=== PATIENT | female | born 1970 | race Caucasian/White ===

== ENCOUNTER 2017-12-14 16:49 | Emergency (ER) | payer MEDICARE, OTHER ==
[~2017-12-14] VITALS: Ht 152.4 cm; Wt 54.4 kg
[~2017-12-14 16:49] MED LIST: AMOX500 PO; AMOX875 PO; CEPH500 PO; CIPHYDOTSU OT; CLIN150 PO; CLIN300 PO; CYCL10 PO; Cyclobenzaprine5 MG PO; DOXY100 PO; DULO60 PO; GENT.3OPSA OU; HYDACE10B; HYDACE10B PO; HYDACE5; HYDACE5 PO; HYDACE7.5 PO; IBUP400; IBUP800; IBUP800 PO; METR70GEL VAG; MOXIOPS RIGHTEYE; NAPR500 PO; Norco 5-325 Ta1 EACH PO; OXYACE5T PO; OXYC15ER PO; PENVK500 PO; PROM25 PO; Percocet 5-3251 EACH PO; RXCLIN PO; RXCYCL10 PO; RXHYDACE PO; RXOXYACE PO; RXPENVK250 PO; SILSUL1TC TOP; TRAM50 PO
[2017-12-14] MEDS ORDERED: Cyclobenzaprine5 MG PO (17:26)
[2017-12-14] MEDS ORDERED: Hydrocodone-Ap1 EA23 PO (17:26)
== END 2017-12-14 17:35 | disposition home or self-care (01) ==
LOC: ER 16:49
DX: M70.811 Other soft tissue disorders related to use, overuse and pressure, right shoulder (principal); H54.40 Blindness, one eye, unspecified eye; F17.210 Nicotine dependence, cigarettes, uncomplicated; Z88.5 Allergy status to narcotic agent; Z88.6 Allergy status to analgesic agent; Z88.2 Allergy status to sulfonamides
CPT/HCPCS: 99283

== ENCOUNTER 2017-12-23 02:01 | Emergency (ER) | payer MEDICARE, OTHER ==
[~2017-12-23] VITALS: Ht 152.4 cm; Wt 54.4 kg
[~2017-12-23 02:01] MED LIST changes: +Hydrocodone-Ap1 EA23 PO
[2017-12-23] MEDS ORDERED: IBUP600 PO (02:45)
== END 2017-12-23 02:56 | disposition home or self-care (01) ==
LOC: ER 02:01
DX: M25.552 Pain in left hip (principal); Q65.89 Other specified congenital deformities of hip; F17.210 Nicotine dependence, cigarettes, uncomplicated; Z88.5 Allergy status to narcotic agent; Z88.6 Allergy status to analgesic agent; Z88.2 Allergy status to sulfonamides; Z79.899 Other long term (current) drug therapy
CPT/HCPCS: 73502; 99283

== ENCOUNTER 2018-01-22 01:57 | Emergency (ER) | payer MEDICARE, OTHER ==
[~2018-01-22] VITALS: Ht 152.4 cm; Wt 59.0 kg
[~2018-01-22 01:57] MED LIST changes: +IBUP600 PO
== END 2018-01-22 03:28 | disposition home or self-care (01) ==
LOC: ER 01:57
DX: S09.90XA Unspecified injury of head, initial encounter (principal); W01.198A Fall on same level from slipping, tripping and stumbling with subsequent striking against other object, initial encounter; Z88.5 Allergy status to narcotic agent; Z88.8 Allergy status to other drugs, medicaments and biological substances; Z88.2 Allergy status to sulfonamides; F17.210 Nicotine dependence, cigarettes, uncomplicated
CPT/HCPCS: 99283

== ENCOUNTER 2018-02-12 19:03 | Emergency (ER) | payer MEDICARE ==
[~2018-02-12] VITALS: Ht 152.4 cm; Wt 54.4 kg
== END 2018-02-12 21:55 | disposition home or self-care (01) ==
LOC: ER 19:03
DX: M25.551 Pain in right hip (principal); Q65.9 Congenital deformity of hip, unspecified; R10.2 Pelvic and perineal pain; Z88.5 Allergy status to narcotic agent; Z88.2 Allergy status to sulfonamides; Z88.8 Allergy status to other drugs, medicaments and biological substances; F17.210 Nicotine dependence, cigarettes, uncomplicated; W18.30XA Fall on same level, unspecified, initial encounter
CPT/HCPCS: 72170; 99283

== ENCOUNTER 2018-07-04 15:06 | Emergency (ER) | payer MEDICARE, OTHER ==
[~2018-07-04] VITALS: Ht 152.4 cm; Wt 54.4 kg
== END 2018-07-04 16:20 | disposition home or self-care (01) ==
LOC: ER 15:06
DX: H54.62 Unqualified visual loss, left eye, normal vision right eye (principal); Z88.5 Allergy status to narcotic agent; Z88.8 Allergy status to other drugs, medicaments and biological substances; Z88.2 Allergy status to sulfonamides
CPT/HCPCS: 99283

== ENCOUNTER 2018-08-03 10:41 | Emergency (ER) | payer MEDICARE, OTHER ==
[~2018-08-03] VITALS: Ht 152.4 cm; Wt 55.3 kg
[2018-08-03] MEDS ORDERED: DOXY100 PO (10:58)
[2018-08-03] MEDS ORDERED: IBUP600 PO (11:00)
[2018-08-03] MEDS ORDERED: Ocuflox5 ML (11:00)
[2018-08-03] MEDS ORDERED: Percocet 5-3251 EACH PO (12:43)
== END 2018-08-03 13:09 | disposition home or self-care (01) ==
LOC: ER 10:41
DX: H16.002 Unspecified corneal ulcer, left eye (principal); H54.40 Blindness, one eye, unspecified eye; F17.210 Nicotine dependence, cigarettes, uncomplicated; Z88.5 Allergy status to narcotic agent; Z88.6 Allergy status to analgesic agent; Z88.2 Allergy status to sulfonamides
CPT/HCPCS: 99282

== ENCOUNTER 2018-11-24 08:21 | Emergency (ER) | payer MEDICARE, OTHER ==
[~2018-11-24] VITALS: Ht 152.4 cm; Wt 54.4 kg
[~2018-11-24 08:21] MED LIST changes: +Ciprodex Otic7.5 ML LEFTEAR; +Ocuflox5 ML
[2018-11-24] MEDS ORDERED: Amoxicillin500 MG PO (11:07)
== END 2018-11-24 11:19 | disposition home or self-care (01) ==
LOC: ER 08:21
DX: H65.92 Unspecified nonsuppurative otitis media, left ear (principal); H60.92 Unspecified otitis externa, left ear; Z88.5 Allergy status to narcotic agent; Z88.8 Allergy status to other drugs, medicaments and biological substances; Z88.2 Allergy status to sulfonamides; Z79.899 Other long term (current) drug therapy; F17.210 Nicotine dependence, cigarettes, uncomplicated
CPT/HCPCS: 70450

== ENCOUNTER 2020-07-02 18:06 | Emergency (ER) | payer MEDICARE, OTHER ==
[~2020-07-02] VITALS: Ht 152.4 cm; Wt 65.8 kg
[~2020-07-02 18:06] MED LIST changes: +Amoxicillin500 MG PO
[2020-07-02] MEDS ORDERED: Cleocin HCl300 MG PO ×2 (20:30→20:54)
== END 2020-07-02 21:02 | disposition home or self-care (01) ==
LOC: ER 18:06
DX: L03.114 Cellulitis of left upper limb (principal); F17.210 Nicotine dependence, cigarettes, uncomplicated
CPT/HCPCS: 99283

== ENCOUNTER 2021-04-03 17:45 | Emergency (ER) | payer MEDICARE, OTHER ==
[~2021-04-03] VITALS: Ht 152.4 cm; Wt 61.2 kg
[~2021-04-03 17:45] MED LIST changes: +Cleocin HCl300 MG PO
== END 2021-04-03 20:12 | disposition home or self-care (01) ==
LOC: ER 17:45
DX: M25.552 Pain in left hip (principal); F17.210 Nicotine dependence, cigarettes, uncomplicated; Z88.5 Allergy status to narcotic agent; Z88.6 Allergy status to analgesic agent; Z88.2 Allergy status to sulfonamides
CPT/HCPCS: 72170; 96372; 99283-25; A9270; J1885

== ENCOUNTER 2021-12-21 13:55 | Emergency (ER) | payer MEDICARE, OTHER ==
[~2021-12-21] VITALS: Ht 157.5 cm; Wt 63.5 kg
[~2021-12-21 13:55] MED LIST changes: +CIPR500 PO; +ONDA4ODT MM
[2021-12-21 14:38] LABS: BASOPHILS ABSOLUTE AUTO 0.09 K/mm3 (0.00-0.23); BASOPHILS PERCENT AUTO 0 % (0-2); EOSINOPHILS ABSOLUTE AUTO 0.24 K/mm3 (0.00-0.68); EOSINOPHILS PERCENT AUTO 1 % (0-6); Hematocrit 53.2 % (33.0-51.0); IMMATURE GRAN ABSOLUTE AUTO 0.07 K/mm3 (0.00-0.10); IMMATURE GRAN PERCENT AUTO 0 % (0-1); LYMPHOCYTES ABSOLUTE AUTO 3.46 K/mm3 (0.84-5.20); LYMPHOCYTES PERCENT AUTO 16 % (21-46); MONOCYTES ABSOLUTE AUTO 0.86 K/mm3 (0.16-1.47); MONOCYTES PERCENT AUTO 4 % (4-13); Mean Corpuscular HGB 28.9 pg (26.0-34.0); Mean Corpuscular Volume 90 fL (80-100); Mean Platelet Volume 10.7 fL (9.1-12.4); NEUTROPHILS ABSOLUTE AUTO 16.49 K/mm3 (1.96-9.15); NEUTROPHILS PERCENT AUTO 78 % (41-73); Platelet Count 512 K/mm3 (150-400); RDW Coefficient Variation 13.2 % (11.7-14.2); RDW Standard Deviation 44.4 fL (35.1-46.3); Red Blood Cell Count 5.89 M/mm3 (3.80-5.20); White Blood Cell Count 21.21 K/mm3 (4.00-11.30)
[2021-12-21 14:49] LABS: Alanine Aminotransfer (ALT/SGP 33 U/L (12-78); Albumin, Blood 3.5 g/dL (3.4-5.0); Albumin/Globulin Ratio 0.7 (0.8-1.8); Alk Phos 94 U/L (50-136); Anion Gap 3 mmol/L (6-16); Aspartate Aminotrans (AST/SGOT 23 U/L (12-37); Bilirubin, Total 0.2 mg/dL (0.1-1.0); Blood Urea Nitrogen 16 mg/dL (8-24); Bun/Creatinine Ratio 27.6 (12.0-20.0); CO2, Blood 24 mmol/L (21-32); Calcium, Blood 9.2 mg/dL (8.5-10.1); Chloride, Blood 109 mmol/L (98-108); Creatinine, Blood 0.58 mg/dL (0.40-1.00); Globulin, Blood 4.8 g/dL (2.2-4.0); Glomerular Filtration Rate >60 (60-); Glucose, Blood 149 mg/dL (70-99); Potassium, Blood 4.1 mmol/L (3.5-5.5); Sodium, Blood 136 mmol/L (136-145); Total Protein, Blood 8.3 g/dL (6.4-8.2)
== END 2021-12-21 14:39 | disposition left against medical advice (07) ==
LOC: ER 13:55
PROVIDERS: Physician Assistant
DX: Z53.21 Procedure and treatment not carried out due to patient leaving prior to being seen by health care provider (principal)
CPT/HCPCS: 36415; 80053; 83690; 85025; J1885

== ENCOUNTER 2023-05-26 20:12 | Inpatient (IN) | payer MEDICARE, OTHER ==
[~2023-05-26] VITALS: Ht 152.4 cm; Wt 61.2 kg
[2023-05-26 20:48] LABS: BASOPHILS ABSOLUTE AUTO 0.07 K/mm3 (0.00-0.23); BASOPHILS PERCENT AUTO 1 % (0-2); EOSINOPHILS ABSOLUTE AUTO 0.08 K/mm3 (0.00-0.68); EOSINOPHILS PERCENT AUTO 1 % (0-6); Hematocrit 37.9 % (33.0-51.0); Hemoglobin 12.9 g/dL (11.5-16.0); IMMATURE GRAN ABSOLUTE AUTO 0.05 K/mm3 (0.00-0.10); IMMATURE GRAN PERCENT AUTO 0 % (0-1); LYMPHOCYTES ABSOLUTE AUTO 2.42 K/mm3 (0.84-5.20); LYMPHOCYTES PERCENT AUTO 18 % (21-46); MONOCYTES ABSOLUTE AUTO 1.28 K/mm3 (0.16-1.47); MONOCYTES PERCENT AUTO 9 % (4-13); Mean Corpuscular Volume 88 fL (80-100); Mean Platelet Volume 10.8 fL (9.1-12.4); NEUTROPHILS ABSOLUTE AUTO 9.87 K/mm3 (1.96-9.15); NEUTROPHILS PERCENT AUTO 72 % (41-73); Platelet Count 260 K/mm3 (150-400); RDW Coefficient Variation 13.2 % (11.7-14.2); RDW Standard Deviation 42.8 fL (35.1-46.3); White Blood Cell Count 13.77 K/mm3 (4.00-11.30)
[2023-05-26 21:05] LABS: Albumin, Blood 3.4 g/dL (3.4-5.0); Albumin/Globulin Ratio 0.7 (0.8-1.8); Bilirubin, Total 0.2 mg/dL (0.1-1.0); Creatinine, Blood 0.43 mg/dL (0.40-1.00); Globulin, Blood 4.7 g/dL (2.2-4.0); Potassium, Blood 3.6 mmol/L (3.5-5.5); Total Protein, Blood 8.1 g/dL (6.4-8.2)
[2023-05-26] MEDS ORDERED: AMOCLA875 PO (23:38)
--- NOTE | 2023-05-26 23:55 | NUR ---
ADMIT PT ADMITTED TO 339. ORIENTED TO ROOM. CALL LIGHT IN REACH. C/O ITCHYNESS TO HER FACE ON THE L SIDE. DR. ESPINAL NOTIFIED AND MYRNA ORDERED. SCDS IN PLACE. K PAD SET UP TO HELP WITH CHRONIC HIP PAIN. PT DENIES OTHER NEEDS AT THIS TIME. EDUCATED ON THE NEED TO CALL BEFORE GETTING UP. PT STATES SHE UNDERSTANDS.
[2023-05-27 01:19] VITALS: BP 114/100
[2023-05-27 05:11] VITALS: BP 114/78
[2023-05-27 05:36] LABS: BASOPHILS ABSOLUTE AUTO 0.09 K/mm3 (0.00-0.23); BASOPHILS PERCENT AUTO 1 % (0-2); EOSINOPHILS ABSOLUTE AUTO 0.34 K/mm3 (0.00-0.68); EOSINOPHILS PERCENT AUTO 3 % (0-6); Hemoglobin 12.5 g/dL (11.5-16.0); IMMATURE GRAN ABSOLUTE AUTO 0.03 K/mm3 (0.00-0.10); IMMATURE GRAN PERCENT AUTO 0 % (0-1); LYMPHOCYTES ABSOLUTE AUTO 3.01 K/mm3 (0.84-5.20); LYMPHOCYTES PERCENT AUTO 29 % (21-46); MONOCYTES ABSOLUTE AUTO 1.26 K/mm3 (0.16-1.47); MONOCYTES PERCENT AUTO 12 % (4-13); Mean Corpuscular HGB 29.6 pg (26.0-34.0); Mean Corpuscular HGB Conc 32.9 g/dL (31.5-36.5); Mean Corpuscular Volume 90 fL (80-100); NEUTROPHILS ABSOLUTE AUTO 5.68 K/mm3 (1.96-9.15); NEUTROPHILS PERCENT AUTO 55 % (41-73); Platelet Count 263 K/mm3 (150-400); RDW Coefficient Variation 13.2 % (11.7-14.2); RDW Standard Deviation 43.7 fL (35.1-46.3); Red Blood Cell Count 4.23 M/mm3 (3.80-5.20); White Blood Cell Count 10.41 K/mm3 (4.00-11.30)
--- NOTE | 2023-05-27 05:39 | NUR ---
SHIFT SUMMARY PT ADMITTED THIS SHIFT. BENADRYL GIVEN ORDERED FOR FACIAL ITCHING. PT SLEEPING SINCE WITH RESPIRATIONS EVEN & UNLABORED. CALL LIGHT IN REACH. HEAT PAD IN REACH. PT TOOK SCDS OFF OVERNIGHT. VS REVIEWED. NO OTHER ACUTE CHANGES IN ASSESSMENT AT THIS TIME.
[2023-05-27 07:30] VITALS: BP 93/63
--- NOTE | 2023-05-27 14:38 | NUR ---
SHIFT SUMMARY PT SLEEPING, RESTING QUIETLY AT START OF SHIFT. WOKE EASILY FOR CARE AT FIRST, BUT LATER DID NOT WANT TO BE BOTHERED. PT EVENTUALLY DID WAKE AND GET UP TO BSC TO VOID WITH SBA. BED LINENS AND GOWN CHANGED WHILE PT UP TO BSC. PT HAS REMAINED AWAKE, EATING LUNCH AND NOW VISITING WITH FAMILY. PT'S SON CALLED EARLY TO CK ON PT. PERMISSION TO UPDATE SON OBTAINED FROM PT BEFORE UPDATE GIVEN. RASH TO L FACE REMAINS RED WITH SOME SWELLING NEAR L EAR ESPECIALLY. DR MENDOZA IN TO SEE PT EARLY WHEN PT MORE SLEEPY, AND TO RETURN LATER THIS AFTERNOON. PT SITTING UP IN BED VISITING WITH FAMILY AT THIS TIME. DENIED FURTHER NEEDS. CALL LT IN REACH.
[2023-05-27 15:29] VITALS: BP 111/74
[2023-05-27 19:48] VITALS: BP 113/75
[2023-05-28 04:21] VITALS: BP 114/73
--- NOTE | 2023-05-28 04:31 | NUR ---
SHIFT SUMMARY ETHAN WAS PLEASANT AND COOPERATIVE WITH CARE, C/O OF PAIN IN FACE/EAR WHICH IS RELIEVED BY NORCO. SHE IS ALERT AND FULLY ORIENTED, SHE STAYED UP ON HER PHONE UNTIL AROUND MIDNIGHT AND STAYED ASLEEP MOST OF THE SHIFT THEREAFTER. SHE IS UNSTEADY ON HER FEET USING THE BSC WHILE DROWSY. SHE IS CURRENTLY RESTING IN BED AT LOWEST POSITION WITH THE CALL LIGHT IN REACH. SHE CALLS APPROPRIATEY FOR NEEDS.
--- NOTE | 2023-05-28 05:32 | NUR ---
THIS [facility] CONSULTANT HAS REVIEWED AND AGREES WITH ALL NOTES AND ASSESSMENTS BY EMELI FENTON.
[2023-05-28 07:29] VITALS: BP 120/83
[2023-05-28] MEDS ORDERED: ACET325 PO (11:58)
[2023-05-28] MEDS ORDERED: AMOCLA875 PO (11:58)
[2023-05-28] MEDS ORDERED: NEOPOLHCSU LEFTEAR (11:59)
[2023-05-28] MEDS ORDERED: Nicoderm Cq1 EAC1 TOP (12:01)
[2023-05-28] MEDS ORDERED: NICO2 PO (12:01)
[2023-05-28] MEDS ORDERED: VISBIOME 112.51 EACH PO (12:01)
[2023-05-28 14:53] VITALS: BP 117/78
--- NOTE | 2023-05-28 15:13 | NUR ---
SHIFT SUMMARY PT AWAKE AT START OF SHIFT TODAY. PLEASANT AND CO-OP WITH CARE. REDNESS AND SWELLING TO L FACE/EAR SLIGHTLY IMPROVED. DR MOONEY AND DR MENDOZA BOTH IN TO SEE PT TODAY. PT WANTING TO GO HOME. D/C ORDERS PLACED. MEDS FAXED TO [facility] PER PT REQUEST AND VERIFIED PRIOR TO D/C. APPOINTMENT MADE FOR THIS Saturday AT 11:00 PER ORDERS. MEDS AND APPOINTMENTS REVIEWED WITH PT; VERBALIZED UNDERSTANDING. PT UP INDEPENDENTLY TO BSC. PT REQUESTING SHOWER PRIOR TO D/C. PT MOSTLY INDEPENDENT WITH ADL'S. IV ABX INFUSING PRIOR TO D/C. PT'S SON JUST ARRIVING TO [employer] PT. DENIED FURTHER NEEDS. ALL BELONGINGS WORN BY PT.
== END 2023-05-28 15:30 | disposition home or self-care (01) | DRG 603 ==
LOC: ER 20:12 → MEDS 20:13
PROVIDERS: Physician Assistant; Student in an Organized Health Care Education/Training Program; ADMIT Hospitalist
DX: L03.211 Cellulitis of face (principal); A46 Erysipelas; H54.61 Unqualified visual loss, right eye, normal vision left eye; E86.0 Dehydration; H60.92 Unspecified otitis externa, left ear; F17.210 Nicotine dependence, cigarettes, uncomplicated; L29.9 Pruritus, unspecified; H26.9 Unspecified cataract; H61.102 Unspecified noninfective disorders of pinna, left ear; F12.90 Cannabis use, unspecified, uncomplicated; Z88.2 Allergy status to sulfonamides; Z79.899 Other long term (current) drug therapy; Z71.6 Tobacco abuse counseling; Z88.8 Allergy status to other drugs, medicaments and biological substances
CPT/HCPCS: 36415; 80053; 83605; 85025; 96365; 96366; 99284-25; A9270; G0378; J0690; J7050

== ENCOUNTER 2023-10-31 17:46 | Emergency (ER) | payer OTHER, MEDICARE ==
[~2023-10-31] VITALS: Ht 152.4 cm; Wt 63.5 kg
[~2023-10-31 17:46] MED LIST changes: +ACET325 PO; +AMOCLA875 PO; +NEOPOLHCSU LEFTEAR; +NICO2 PO; +Nicoderm Cq1 EAC1 TOP; +VISBIOME 112.51 EACH PO
[2023-10-31 18:07] VITALS: BP 135/86
== END 2023-10-31 19:28 | disposition home or self-care (01) ==
LOC: ER 17:46
DX: S50.02XA Contusion of left elbow, initial encounter (principal); S50.12XA Contusion of left forearm, initial encounter; F17.210 Nicotine dependence, cigarettes, uncomplicated; Z99.89 Dependence on other enabling machines and devices; W01.198A Fall on same level from slipping, tripping and stumbling with subsequent striking against other object, initial encounter
CPT/HCPCS: 73080; 99283-25

== ENCOUNTER 2024-06-25 18:13 | Emergency (ER) | payer MEDICARE, OTHER ==
[~2024-06-25] VITALS: Ht 152.4 cm; Wt 61.2 kg
[2024-06-25 18:32] VITALS: BP 140/93
[2024-06-25] MEDS ORDERED: CEPH500 PO (19:07)
[2024-06-25] MEDS ORDERED: Cephalexin Monohydrate 500 MG Cap PO ONE (19:10)
== END 2024-06-25 19:22 | disposition home or self-care (01) ==
LOC: ER 18:13
DX: L03.114 Cellulitis of left upper limb (principal); L02.414 Cutaneous abscess of left upper limb; F17.210 Nicotine dependence, cigarettes, uncomplicated; Z88.5 Allergy status to narcotic agent; Z88.6 Allergy status to analgesic agent; Z88.2 Allergy status to sulfonamides
CPT/HCPCS: 99282; A9270

== ENCOUNTER 2024-07-15 19:31 | Emergency (ER) | payer MEDICARE, OTHER ==
[~2024-07-15] VITALS: Ht 152.4 cm; Wt 63.2 kg
[2024-07-15 19:44] VITALS: BP 142/106
[2024-07-15 20:22] LABS: EOSINOPHILS ABSOLUTE AUTO 0.18 K/mm3 (0.00-0.68); LYMPHOCYTES PERCENT AUTO 23 % (21-46); RDW Coefficient Variation 13.4 % (11.7-14.2)
[2024-07-15 20:32] LABS: BASOPHILS ABSOLUTE AUTO 0.07 K/mm3 (0.00-0.23); BASOPHILS PERCENT AUTO 1 % (0-2); EOSINOPHILS PERCENT AUTO 2 % (0-6); Hematocrit 41.1 % (33.0-51.0); Hemoglobin 13.9 g/dL (11.5-16.0); IMMATURE GRAN ABSOLUTE AUTO 0.02 K/mm3 (0.00-0.10); IMMATURE GRAN PERCENT AUTO 0 % (0-1); LYMPHOCYTES ABSOLUTE AUTO 2.34 K/mm3 (0.84-5.20); MONOCYTES ABSOLUTE AUTO 0.72 K/mm3 (0.16-1.47); MONOCYTES PERCENT AUTO 7 % (4-13); Mean Corpuscular HGB 29.6 pg (26.0-34.0); Mean Corpuscular HGB Conc 33.8 g/dL (31.5-36.5); Mean Corpuscular Volume 88 fL (80-100); NEUTROPHILS ABSOLUTE AUTO 6.97 K/mm3 (1.96-9.15); NEUTROPHILS PERCENT AUTO 68 % (41-73); NRBC ABSOLUTE 0.03 K/mm3 (0.00-0.02); NRBC Auto 0.3 /100 WBC (0.0-0.2); RDW Standard Deviation 43.1 fL (35.1-46.3); Red Blood Cell Count 4.69 M/mm3 (3.80-5.20)
[2024-07-15 20:37] LABS: Albumin, Blood 3.4 g/dL (3.4-5.0); Albumin/Globulin Ratio 0.8 (0.8-1.8); Bilirubin, Total 0.2 mg/dL (0.1-1.0); Calcium, Blood 9.2 mg/dL (8.5-10.1); Creatinine, Blood 0.35 mg/dL (0.40-1.00); Globulin, Blood 4.5 g/dL (2.2-4.0); Potassium, Blood 4.3 mmol/L (3.5-5.5); Total Protein, Blood 7.9 g/dL (6.4-8.2)
[2024-07-15 21:05] LABS: Platelet Count 330 K/mm3 (150-400)
[2024-07-15] MEDS ORDERED: Morphine Sulfate 4 MG/1 ML Injection IV ONE (21:30)
[2024-07-15] MEDS ORDERED: NS 1,000 ML IV SCH (21:30)
[2024-07-15] MEDS ORDERED: Ondansetron HCl 2 MG / ML 2ML Vial IV ONE (21:30)
== END 2024-07-15 22:23 | disposition home or self-care (01) ==
LOC: ER 19:31
PROVIDERS: Physician Assistant
DX: R10.84 Generalized abdominal pain (principal); R11.2 Nausea with vomiting, unspecified; Z55.0 Illiteracy and low-level literacy; Z88.8 Allergy status to other drugs, medicaments and biological substances; Z88.5 Allergy status to narcotic agent; Z88.2 Allergy status to sulfonamides; Z79.899 Other long term (current) drug therapy; F17.210 Nicotine dependence, cigarettes, uncomplicated
CPT/HCPCS: 74177; 80053; 85025; 96361; 96374; 96375; 99284-25; J2270; J2405; J7030; Q9967

== ENCOUNTER 2024-11-24 08:14 | Inpatient (IN) | payer MEDICARE, OTHER ==
[~2024-11-24] VITALS: Ht 152.4 cm; Wt 63.5 kg
[2024-11-24] MEDS ORDERED: Magnesium Sulf 2 GM/Water 50ML 50 ML IV ONE (08:20)
[2024-11-24] MEDS ORDERED: MethylPREDNISolone Sod Succ 125 MG Vial IV ONE (08:20)
[2024-11-24] MEDS ORDERED: NS 1,000 ML IV SCH (08:20)
[2024-11-24] MEDS ORDERED: LORazepam 2 MG/ML 1ML Injection IV ONE (08:25)
[2024-11-24] MEDS ORDERED: Albuterol 2.5 MG/3 ML VIAL INH ONE (08:30)
[2024-11-24 08:35] LABS: BASOPHILS ABSOLUTE AUTO 0.06 K/mm3 (0.00-0.23); BASOPHILS PERCENT AUTO 1 % (0-2); EOSINOPHILS PERCENT AUTO 2 % (0-6); Hematocrit 44.6 % (33.0-51.0); Hemoglobin 14.5 g/dL (11.5-16.0); IMMATURE GRAN ABSOLUTE AUTO 0.02 K/mm3 (0.00-0.10); IMMATURE GRAN PERCENT AUTO 0 % (0-1); LYMPHOCYTES ABSOLUTE AUTO 3.28 K/mm3 (0.84-5.20); LYMPHOCYTES PERCENT AUTO 31 % (21-46); MONOCYTES ABSOLUTE AUTO 0.63 K/mm3 (0.16-1.47); MONOCYTES PERCENT AUTO 6 % (4-13); Mean Corpuscular HGB 29.4 pg (26.0-34.0); Mean Corpuscular HGB Conc 32.5 g/dL (31.5-36.5); Mean Corpuscular Volume 91 fL (80-100); Mean Platelet Volume 10.7 fL (9.1-12.4); NEUTROPHILS ABSOLUTE AUTO 6.33 K/mm3 (1.96-9.15); NEUTROPHILS PERCENT AUTO 60 % (41-73); Platelet Count 334 K/mm3 (150-400); RDW Coefficient Variation 13.2 % (11.7-14.2); Red Blood Cell Count 4.93 M/mm3 (3.80-5.20); White Blood Cell Count 10.52 K/mm3 (4.00-11.30)
[2024-11-24 08:50] LABS: PCO2 Arterial 26.5 mmHg (35-45); PO2 Arterial >500 mmHg (80-100)
[2024-11-24] MEDS ORDERED: Ondansetron HCl 2 MG / ML 2ML Vial IV ONE (08:50)
[2024-11-24 08:56] LABS: Albumin, Blood 3.4 g/dL (3.4-5.0); Albumin/Globulin Ratio 0.7 (0.8-1.8); Bilirubin, Total 0.3 mg/dL (0.1-1.0); Bun/Creatinine Ratio 21.4 (12.0-20.0); Calcium, Blood 9.2 mg/dL (8.5-10.1); Creatinine, Blood 0.42 mg/dL (0.40-1.00); Globulin, Blood 4.6 g/dL (2.2-4.0); Potassium, Blood 4.2 mmol/L (3.5-5.5)
[2024-11-24 09:46] LABS: Influenza A, PCR NEGATIVE (NEGATIVE); Influenza B, PCR NEGATIVE (NEGATIVE); Resp Syncytial Virus, PCR NEGATIVE (NEGATIVE); SARS-Cov-2 (COVID-19) PCR, MMC NEGATIVE (NEGATIVE)
[2024-11-24] MEDS ORDERED: FLU VACC TS2024-25(6MOS UP)/PF 45 MCG/0.5 ML SYRINGE IM SCH (10:35)
[2024-11-24] MEDS ORDERED: MethylPREDNISolone Sod Succ 125 MG Vial IV SCH (12:00)
[2024-11-24 14:30] VITALS: BP 122/78
[2024-11-24] MEDS ORDERED: HyDROXyzine HCl 25 MG Tab PO PRN (15:00)
[2024-11-25] MEDS ORDERED: Enoxaparin 40 MG/0.4 ML SYR SC SCH (09:00)
[2024-11-25] MEDS ORDERED: Nicotine 14 MG PATCH TOP SCH (09:00)
== END 2024-11-24 15:00 | disposition left against medical advice (07) | DRG 189 ==
LOC: ER 08:14 → ERHOLD 10:31
PROVIDERS: Emergency Medicine; ADMIT Family Medicine
PROC: 5A09357 Assistance with Respiratory Ventilation, Less than 24 Consecutive Hours, Continuous Positive Airway Pressure (ICD-10-PCS; principal; 2024-11-24)
DX: J96.01 Acute respiratory failure with hypoxia (principal); R65.11 Systemic inflammatory response syndrome (SIRS) of non-infectious origin with acute organ dysfunction; J44.1 Chronic obstructive pulmonary disease with (acute) exacerbation; Z88.8 Allergy status to other drugs, medicaments and biological substances; F17.210 Nicotine dependence, cigarettes, uncomplicated; G89.29 Other chronic pain; H54.7 Unspecified visual loss; M25.559 Pain in unspecified hip; Z88.2 Allergy status to sulfonamides
CPT/HCPCS: 0241U; 36600; 71045; 80053; 82803; 85025; 93005; 93010; 94644; 94660; 94664; 96365; 96366; 96375; 99285-25; J2060; J2405; J2919; J3475; J7030

== ENCOUNTER 2025-05-29 12:47 | Emergency (ER) | payer MEDICARE, OTHER ==
[~2025-05-29] VITALS: Ht 152.4 cm; Wt 63.5 kg
[2025-05-29] MEDS ORDERED: OXAYDO5 M1 PO (16:29)
[2025-05-29 16:30] VITALS: BP 110/75
== END 2025-05-29 16:51 | disposition home or self-care (01) ==
LOC: ER 12:47
DX: M25.552 Pain in left hip (principal); M25.551 Pain in right hip; F17.210 Nicotine dependence, cigarettes, uncomplicated; W18.30XA Fall on same level, unspecified, initial encounter; Z88.5 Allergy status to narcotic agent; Z88.6 Allergy status to analgesic agent; Z88.2 Allergy status to sulfonamides
CPT/HCPCS: 73522; 99284-25; A9270